=== PATIENT | female | born 1955 | race Caucasian/White ===

== ENCOUNTER 2021-04-05 08:51 | Emergency (ER) | payer OTHER ==
[~2021-04-05] VITALS: Ht 162.6 cm; Wt 94.3 kg
[2021-04-05 08:55] VITALS: BP_SYST 160
[2021-04-05] MEDS ORDERED: NACL 0.9% 1,000 ML IV ONE ×2 (09:30→11:15)
[2021-04-05 09:49] LABS: BILIRUBIN,URINE NEGATIVE (NEGATIVE); BLOOD, URINE 2+ (NEGATIVE); COLOR,URINE YELLOW (YELLOW); GLUCOSE,URINE NEGATIVE (NEGATIVE); KETONES,URINE NEGATIVE (NEGATIVE); LEUKOCYTE ESTERASE ,URINE 1+ (NEGATIVE); NITRITE, URINE NEGATIVE (NEGATIVE); PH,URINE 5.5 (5.0-8.0); PROTEIN URINE NEGATIVE (NEGATIVE); UROBILINOGEN,URINE 0.2 (0.2-1.0)
[2021-04-05 09:55] LABS: CLARITY/URINE SLIGHTLY HAZY (CLEAR)
[2021-04-05 09:59] LABS: BACTERIA,URINE FEW /HPF (None Seen)
[2021-04-05 10:25] LABS: BASOPHILS # (AUTO) 0.1 K/uL (0.0-0.2); BASOPHILS % (AUTO) 0.6 % (0.0-2.0); EOSINOPHILS # (AUTO) 0.3 K/uL (0.0-0.4); EOSINOPHILS % (AUTO) 2.3 % (0.0-4.0); HEMOGLOBIN 14.6 g/dL (12.0-16.0); LYMPHOCYTES # (AUTO) 1.1 K/uL (1.0-5.5); LYMPHOCYTES % (AUTO) 9.3 % (20.5-51.5); MEAN CORPUSCULAR HEMOGLOBIN 30 pg (27-31); MEAN CORPUSCULAR HGB CONC 34 % (32-36); MEAN CORPUSCULAR VOLUME 89 fL (79.0-98.0); MONOCYTES # (AUTO) 0.7 K/uL (0.0-1.0); MONOCYTES % (AUTO) 5.8 % (1.7-9.3); NEUTROPHILS # (AUTO) 9.8 K/uL (1.8-7.7); PLATELET COUNT (AUTO) 309 K/uL (130-430); RED BLOOD CELL COUNT(AUTO) 4.85 MIL/uL (4.2-6.2); RED CELL DISTRIBUTION WIDTH 12.7 % (9.0-15.0); WHITE BLOOD COUNT (AUTO) 11.9 K/uL (4.8-10.8)
[2021-04-05 10:40] LABS: CALCIUM 9.1 mg/dL (8.4-11.0); CREATININE 0.95 mg/dL (0.55-1.30); POTASSIUM 3.8 mmol/L (3.5-5.1)
[2021-04-05 10:43] LABS: PROTHROMBIN TIME 9.8 SECS (9.5-12.5)
[2021-04-05 10:45] LABS: ALBUMIN 3.6 g/dL (3.4-4.8); TOTAL BILIRUBIN 0.4 mg/dL (0.0-1.0)
[2021-04-05] MEDS ORDERED: ONDANSETRON HCL 4 MG/2 ML VIAL IVP ONE (11:15)
[2021-04-05] MEDS ORDERED: AZITHROMYCIN 500 MG in NS 250 ML IV ONE (11:15)
[2021-04-05] MEDS ORDERED: MORPHINE 4 MG INJ. 4 MG/ML VIAL IVP ONE (11:15)
[2021-04-05] MEDS ORDERED: cefTRIAXone 1 GM IVPB PREMIX 50 ML IV ONE (11:15)
[2021-04-05] MEDS ORDERED: AZITHROMYCIN 500 MG/VIAL (ZITHROMAX) IV ONE (12:10)
[2021-04-05] MEDS ORDERED: AZITHROMYCIN 250 MG TABLET ONE (13:24)
[2021-04-05] MEDS ORDERED: LEVO750T45 PO (13:30)
[2021-04-05 13:35] VITALS: BP_SYST 152
== END 2021-04-05 13:36 | disposition home or self-care (01) ==
LOC: SED 08:51
DX: K80.20 Calculus of gallbladder without cholecystitis without obstruction (principal); R91.8 Other nonspecific abnormal finding of lung field; Z88.8 Allergy status to other drugs, medicaments and biological substances; Z79.899 Other long term (current) drug therapy
CPT/HCPCS: 36415; 74176; 76376; 76700; 80053; 81000; 83605; 83690; 84484; 85025; 85610; 85730; 87040; 87086; 96361; 96365; 96366; 96368; 96375; 99285; J0456; J0696; J2270; J2405; J7030; Q0144

== ENCOUNTER 2021-08-21 08:02 | Day surgery (SDC) | payer OTHER, SELFPAY ==
[~2021-08-21] VITALS: Ht 162.6 cm; Wt 86.2 kg
[~2021-08-21 08:02] MED LIST: CEFAZOLIN SOD 2 GM in D5W 50 ML IV ONE; LEVO750T45 PO
[2021-08-21] MEDS ORDERED: SEVOFLURANE 15 MIN GAS INH ONE (09:08)
[2021-08-21] MEDS ORDERED: ePHEDrine sulfate 50 MG/ML VIAL IVP ONE (09:08)
[2021-08-21] MEDS ORDERED: DEXAMETHASONE SOD PHOSPHATE 4 MG/ML VIAL IVP ONE (09:08)
[2021-08-21] MEDS ORDERED: DIPHENHYDRAMINE INJ 50 MG/ML VIAL IVP ONE (09:08)
[2021-08-21] MEDS ORDERED: LR 1,000 ML IV.SOLN IV ONE (09:08)
[2021-08-21] MEDS ORDERED: GLYCOPYRROLATE 0.2 MG/ML VIAL IJ ONE (09:08)
[2021-08-21] MEDS ORDERED: ONDANSETRON HCL 4 MG/2 ML VIAL IVP ONE (09:08)
[2021-08-21] MEDS ORDERED: PROPOFOL 200MG/ 20ML VIAL (DIPRIVAN) IV ONE (09:08)
[2021-08-21] MEDS ORDERED: NS 1000 ML IV.SOLN IV ONE (09:08)
[2021-08-21] MEDS ORDERED: ROCURONIUM BROMIDE 10 MG/ML (ZEMURON) IV ONE (09:08)
[2021-08-21] MEDS ORDERED: BUPIVACAINE /EPINEPHRINE/PF 0.5% 30 ML VIAL INJ ONE (09:08)
[2021-08-21] MEDS ORDERED: PHENYLEPHRINE HCL 10 MG/ML VIAL (NEOSYNEPHRINE) IV ONE (09:08)
[2021-08-21] MEDS ORDERED: METOCLOPRAMIDE HCL 10 MG/2 ML VIAL IVP ONE (09:08)
[2021-08-21] MEDS ORDERED: HYDROmorphone 2 MG/ML VIAL IVP ONE (09:08)
[2021-08-21] MEDS ORDERED: ONDANSETRON HCL 4 MG/2 ML VIAL IVP PRN (11:30)
[2021-08-21] MEDS ORDERED: HYDROmorphone 1 MG/ML INJ. CARTRIDGE IVP PRN (11:30)
[2021-08-21] MEDS ORDERED: HYDROcodone/ACETAMIN 5-325 MG TAB (NORCO/ VICODIN) PO PRN (13:00)
[2021-08-21] MEDS ORDERED: ONDANSETRON HCL 4 MG/2 ML VIAL ONE (13:12)
[2021-08-21 13:41] VITALS: BP_SYST 118
== END 2021-08-21 15:35 | disposition home or self-care (01) ==
LOC: SDS 08:02 → SMU 08:03 → SDS 15:35
PROVIDERS: ATTEND Surgery
DX: K80.10 Calculus of gallbladder with chronic cholecystitis without obstruction (principal); R10.11 Right upper quadrant pain; I10 Essential (primary) hypertension; Z79.899 Other long term (current) drug therapy; Z20.822 Contact with and (suspected) exposure to COVID-19
CPT/HCPCS: 47563; 49321; 74300; 88108; 88305; 88307; 88341; 88342; 88361; C1727; J0690; J1100; J1170; J1200; J2370; J2405; J2704; J2765; J3490 ×2; J7030; J7060; J7120; Q9967; U0003; 76000

== ENCOUNTER 2021-11-09 11:11 | Outpatient (CLI) | payer OTHER, SELFPAY ==
[~2021-11-09] VITALS: Ht 162.6 cm; Wt 86.2 kg
[~2021-11-09 11:11] MED LIST changes: +CEFAZOLIN SOD 1 GM in D5W 50 ML IV ONE; -CEFAZOLIN SOD 2 GM in D5W 50 ML IV ONE
[2021-11-09 17:19] VITALS: BP_SYST 132
== END 2021-11-09 13:30 | disposition home or self-care (01) ==
LOC: SLB 11:11 → EDSTATUS 11:40 → SDS 13:20 → SMU 13:20 → SLB 13:30
PROVIDERS: ATTEND Colon & Rectal Surgery
DX: Z01.812 Encounter for preprocedural laboratory examination (principal); Z20.822 Contact with and (suspected) exposure to COVID-19; C55 Malignant neoplasm of uterus, part unspecified
CPT/HCPCS: 36415; 87426; U0003; J0690; J7060